=== PATIENT | female | born 1950 | race Asian ===

== ENCOUNTER 2021-08-02 18:32 | Inpatient (IN) | payer MEDICARE, OTHER ==
[~2021-08-02] VITALS: Ht 149.9 cm; Wt 73.8 kg
[2021-08-02] MEDS ORDERED: LABETALOL 20 MG/4 ML DISP.SYRIN. IVP ONE (19:30)
[2021-08-02] MEDS ORDERED: KETOROLAC 15 MG/ML VIAL. IVP ONE (19:30)
[2021-08-02] MEDS ORDERED: IV NORMAL SALINE 1,000ML 1,000 ML IV ONE (19:30)
[2021-08-02 19:31] LABS: BASO % 0 % (0-3); EOS # 0.2 x10^3/uL (0.0-0.7); EOS % 3 % (0-3); HEMATOCRIT 40.6 % (36.0-47.0); HEMOGLOBIN 13.5 g/dL (12.0-15.5); LYMPH # 2.7 x10^3/uL (1.0-4.8); LYMPH % 35 % (24-48); MEAN CORPUSCULAR HEMOGLOBIN 29 pg (25-35); MEAN CORPUSCULAR HGB CONC 33 g/dL (31-37); MEAN CORPUSCULAR VOLUME 88 fL (79-100); MONO # 0.7 x10^3/uL (0.0-1.1); MONO % 9 % (0-9); NEUT # 4.2 x10^3uL (1.8-7.7); NEUT % 53 % (31-73); PLATELET COUNT 255 x10^3/uL (140-400); RED CELL DISTRIBUTION WIDTH 14.4 % (11.5-14.5); WHITE BLOOD COUNT 7.9 x10^3/uL (4.0-11.0)
[2021-08-02 19:38] LABS: CALCIUM 9.4 mg/dL (8.5-10.1); CREATININE 0.9 mg/dL (0.6-1.0); GFR 62.1; POTASSIUM 4.2 mmol/L (3.5-5.1)
[2021-08-02 19:44] LABS: ALBUMIN 3.7 g/dL (3.4-5.0); ALBUMIN/GLOBULIN RATIO 0.9 (1.0-1.7); TOTAL BILIRUBIN 0.3 mg/dL (0.2-1.0)
[2021-08-02 19:52] LABS: BACTERIA,URINE 0 /HPF (0-FEW); BILIRUBIN,URINE NEG (NEG); CLARITY,URINE CLEAR; COLOR,URINE YELLOW; GLUCOSE,URINE NEG (NEG); NITRITE,URINE NEG (NEG); RBC,URINE 0 /HPF (0-2); SQUAMOUS EPITHELIAL CELL,UR FEW /LPF; UROBILINOGEN,URINE 0.2 mg/dL (0.2 mg/dL)
--- NOTE | 2021-08-02 21:08 | RAD ---
Exam: CT head and cervical spine INDICATION: Dizzy, weakness TECHNIQUE: Sequential axial images through the head and cervical spine were obtained without the admi nistration of IV contrast. Exposure: One or more of the following in the visualized dose reduction techniques were utilized for this examination: 1. Automated exposure control 2. Adjustment of the MA and/or KV according to patient size 3. Use of iterative of reconstructive technique Comparisons: None FINDINGS: Head: No focal parenchymal lesion or hemorrhage is identified. There is no midline shift or sulcal effaceme nt. Mild patchy hypodensity in the periventricular white matter. No acute vascular territory infarction i s identified. Trammell-white distinction is preserved. The ventricular system is within normal limits without compression hydrocephalus. The basal cisterns are well maintained. The visualized portions of the paranasal sinuses and mastoid air cells are well-pneumatized. No acute fractures. Cervical spine: Vertebral body heights and alignment are well-maintained. Fracture to the cervical spine is not identified. No significant spondylotic change in cervical spine. Visualized paraspinal soft tissues are unremarkable. IMPRESSION: 1. Mild small vessel ischemic change, technically age indeterminate without recent prior imaging. 2. Negative CT C-spine for acute traumatic injury. Electronically signed by: Eulalio Luu MD (08/02/2021 9:06 PM) [facility]
--- NOTE | 2021-08-02 21:15 | PHYS DOC ---
Past History Past Surgical History: Tubal ligation (CLAU ESCUDERO APRN) Alcohol Use: None (CLAU ESCUDERO APRN) General Adult EDM: Chief Complaint: FATIGUE HPI: HPI: Patient is a 71-year-old female who presents with weakness, dizziness. Patient is also reporting chronic back pain. Patient states that she seen her PCP for this problem in the past and has a follow-up appointment next month with her PCP. Patient's blood pressure on arrival was 180s/90s. Patient denies dizziness or weakness at this time. Denies chest pain or shortness of breath. Denies nausea/vomiting/diarrhea. History of hypertension. (CLAU ESCUDERO APRN) Review of Systems: Review of Systems: ROS At least 10 ROS systems have been reviewed and are negative except as documented in the HPI. General: Negative except as outlined in HPI above. Skin: Negative except as outlined in HPI above. HEENT: Negative except as outlined in HPI above. Neck: Negative except as outlined in HPI above. Respiratory: Negative except as outlined in HPI above.. Cardiovascular: Negative except as outlined in HPI above. Abdomen: Negative except as outlined in HPI above. : Negative except as outlined in HPI above. Back/MSK: Negative except as outlined in HPI above. Neuro: Negative except as outlined in HPI above. Psych: Negative except as outlined in HPI above. (CLAU ESCUDERO APRN) Current Medications: Current Meds: Current Medications Medications (Trade) Dose Ordered Sig/Lev Start Time Stop Time Status Last Admin Dose Admin Ketorolac Tromethamine (Toradol 15mg Vial) 15 mg 1X ONCE 08/02/21 19:30 08/02/21 19:31 DC 08/02/21 19:37 15 MG Labetalol HCl (Normodyne) 10 mg 1X ONCE 08/02/21 19:30 08/02/21 19:31 DC 08/02/21 19:37 10 MG Sodium Chloride 1,000 ml @ 1,000 mls/hr 1X ONCE 08/02/21 19:30 08/02/21 20:29 DC 08/02/21 19:37 1,000 MLS/HR (CLAU ESCUDERO APRN) Allergies: Allergies: Allergies Coded Allergies Type Severity Reaction Last Updated Verified No Known Drug Allergies 08/02/21 No (CLAU ESCUDERO APRN) Physical Exam: PE: Constitutional: Well developed, well nourished, no acute distress, non-toxic appearance. [] HENT: Normocephalic, atraumatic, bilateral external ears normal, oropharynx moist, no oral exudates, nose normal. [] Eyes: PERRLA, EOMI, conjunctiva normal, no discharge. [] Neck: Normal range of motion, no tenderness, supple, no stridor. [] Cardiovascular:Heart rate regular rhythm, no murmur [] Lungs & Thorax: Bilateral breath sounds clear to auscultation [] Abdomen: Bowel sounds normal, soft, no tenderness, no masses, no pulsatile masses. [] Skin: Warm, dry, no erythema, no rash. [] Back: No tenderness, no CVA tenderness. [] Extremities: No tenderness, no cyanosis, no clubbing, ROM intact, no edema. [] Neurologic: Alert and oriented X 3, normal motor function, normal sensory function, no focal deficits noted. [] Psychologic: Affect normal, judgement normal, mood normal. [] (CLAU ESCUDERO APRN) Current Patient Data: Labs: Laboratory Tests Test 08/02/21 18:50 08/02/21 19:15 Urine Collection Type Unknown Urine Color Yellow Urine Clarity Clear Urine pH 5.0 Urine Specific [place] 1.010 Urine Protein Neg (NEG-TRACE) Urine Glucose (UA) Neg mg/dL (NEG) Urine Ketones (Stick) Neg mg/dL (NEG) Urine Blood Trace (NEG) Urine Nitrite Neg (NEG) Urine Bilirubin Neg (NEG) Urine Urobilinogen Dipstick 0.2 mg/dL (0.2 mg/dL) Urine Leukocyte Esterase Trace (NEG) Urine RBC 0 /HPF (0-2) Urine WBC 1-4 /HPF (0-4) Urine Squamous Epithelial Cells Few /LPF Urine Bacteria 0 /HPF (0-FEW) White Blood Count 7.9 x10^3/uL (4.0-11.0) Red Blood Count 4.60 x10^6/uL (3.50-5.40) Hemoglobin 13.5 g/dL (12.0-15.5) Hematocrit 40.6 % (36.0-47.0) Mean Corpuscular Volume 88 fL (79-100) Mean Corpuscular Hemoglobin 29 pg (25-35) Mean Corpuscular Hemoglobin Concent 33 g/dL (31-37) Red Cell Distribution Width 14.4 % (11.5-14.5) Platelet Count 255 x10^3/uL (140-400) Neutrophils (%) (Auto) 53 % (31-73) Lymphocytes (%) (Auto) 35 % (24-48) Monocytes (%) (Auto) 9 % (0-9) Eosinophils (%) (Auto) 3 % (0-3) Basophils (%) (Auto) 0 % (0-3) Neutrophils # (Auto) 4.2 x10^3uL (1.8-7.7) Lymphocytes # (Auto) 2.7 x10^3/uL (1.0-4.8) Monocytes # (Auto) 0.7 x10^3/uL (0.0-1.1) Eosinophils # (Auto) 0.2 x10^3/uL (0.0-0.7) Basophils # (Auto) 0.0 x10^3/uL (0.0-0.2) Sodium Level 138 mmol/L (136-145) Potassium Level 4.2 mmol/L (3.5-5.1) Chloride Level 105 mmol/L (98-107) Carbon Dioxide Level 23 mmol/L (21-32) Anion Gap 10 (6-14) Blood Urea Nitrogen 22 mg/dL (7-20) H Creatinine 0.9 mg/dL (0.6-1.0) Estimated GFR (Cockcroft-Gault) 62.1 BUN/Creatinine Ratio 24 (6-20) H Glucose Level 99 mg/dL (70-99) Calcium Level 9.4 mg/dL (8.5-10.1) Total Bilirubin 0.3 mg/dL (0.2-1.0) Aspartate Amino Transferase (AST) 22 U/L (15-37) Alanine Aminotransferase (ALT) 28 U/L (14-59) Alkaline Phosphatase 55 U/L (46-116) Total Protein 8.0 g/dL (6.4-8.2) Albumin 3.7 g/dL (3.4-5.0) Albumin/Globulin Ratio 0.9 (1.0-1.7) L Vital Signs: Vital Signs Date Time Temp Pulse Resp B/P (MAP) Pulse Ox O2 Delivery O2 Flow Rate FiO2 9/26/21 19:37 68 196/111 08/02/21 18:32 98.3 18 100 Room Air (CLAU ESCUDERO APRN) EKG: EKG: [] (CLAU ESCUDERO APRN) Radiology/Procedures: Radiology/Procedures: []Exam: CT head and cervical spine INDICATION: Dizzy, weakness TECHNIQUE: Sequential axial images through the head and cervical spine were obtained without the administration of IV contrast. Exposure: One or more of the following in the visualized dose reduction techniques were utilized for this examination: 1. Automated exposure control 2. Adjustment of the MA and/or KV according to patient size 3. Use of iterative of reconstructive technique Comparisons: None FINDINGS: Head: No focal parenchymal lesion or hemorrhage is identified. There is no midline shift or sulcal effacement. Mild patchy hypodensity in the periventricular white matter. No acute vascular territory infarction is identified. Trammell-white distinction is preserved. The ventricular system is within normal limits without compression hydrocephalus. The basal cisterns are well maintained. The visualized portions of the paranasal sinuses and mastoid air cells are well- pneumatized. No acute fractures. Cervical spine: Vertebral body heights and alignment are well-maintained. Fracture to the cervical spine is not identified. No significant spondylotic change in cervical spine. Visualized paraspinal soft tissues are unremarkable. IMPRESSION: 1. Mild small vessel ischemic change, technically age indeterminate without recent prior imaging. 2. Negative CT C-spine for acute traumatic injury. Electronically signed by: Eulalio Luu MD (08/02/2021 9:06 PM) [facility] (CLAU ESCUDERO APRN) Heart Score: C/O Chest Pain: No Risk Factors: Risk Factors: DM, Current or recent (<one month) smoker, HTN, HLP, family history of CAD, obesity. Risk Scores: Score 0 - 3: 2.5% MACE over next 6 weeks - Discharge Home Score 4 - 6: 20.3% MACE over next 6 weeks - Admit for Clinical Observation Score 7 - 10: 72.7% MACE over next 6 weeks - Early Invasive Strategies (CLAU ESCUDERO APRN) Course & Med Decision Making: Course & Med Decision Making Pertinent Labs and Imaging studies reviewed. (See chart for details) [] 71-year-old who presents with weakness, dizziness, chronic back pain. Denies shortness of breath or chest pain. Denies cardiac history. Orthostatics are negative. Patient states that her blood pressure over the last few months has been elevated in the 200s. Patient currently takes blood pressure medicine. CT head was unremarkable. Patient's troponin elevated at 0.246. Abnormal EKG. Spoke with Dr. Mcgill from cardiology. Recommended repeat troponin at 6 AM and at 10 AM, along with starting heparin. Dr. Mcgill will see patient tomorrow. Spoke with Dr. Chan at [phone]. Dr. Chan is willing to accept patient for rule out MT. (CLAU ESCUDERO APRN) Dragon Disclaimer: Dragon Disclaimer: This electronic medical record was generated, in whole or in part, using a voice recognition dictation system. (CLAU ESCUDERO APRN) Departure Departure: Referrals: CHAY SCOTT MD (PCP) Attending Signature Attending Signature I have participated in the care of this patient and I have reviewed and agree with all pertinent clinical information above including history, exam, and recommendations. (ABRAM MAGAÑA MD) Attending Signature Attending Signature I have participated in the care of this patient and I have reviewed and agree with all pertinent clinical information above including history, exam, and recommendations. (ABRAM MAGAÑA MD) CLAU ESCUDERO APRN Aug 02, 2021 21:15 ABRAM MAGAÑA MD Aug 03, 2021 08:13
--- NOTE | 2021-08-02 21:30 | EKG ---
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
[2021-08-02] MEDS ORDERED: ANTI-COAG MONITOR BY PHARMACY. MC PRN (22:00)
[2021-08-02] MEDS ORDERED: ASPIRIN CHEWABLE 81 MG TABLET. PO ONE (22:00)
[2021-08-02] MEDS ORDERED: HEPARIN for IV BOLUS 10,000 UNIT/10 ML VIAL. IV ONE (22:00)
--- NOTE | 2021-08-02 22:27 | RAD ---
Exam: Chest one view INDICATION: Dizzy TECHNIQUE: Frontal view of the chest Comparisons: None FINDINGS: The cardiomediastinal silhouette and pulmonary vessels are within normal limits. Hazy bibasilar airspace disease. No pleural effusion IMPRESSION: Findings which may relate to mild pulmonary edema. Electronically signed by: Eulalio Luu MD (08/02/2021 10:24 PM) [facility]
[2021-08-02 23:20] VITALS: BP 181/91
--- NOTE | 2021-08-02 23:20 | NUR ---
Pt admitted to ICU bed 2 from ER via [facility], accompanied by EMS and nursing staff. Pt stood and self transferred [place] bed with x1 assist, unsteady gait noted. Pt here for c/o Dizziness & Weakness. Admission assessment completed. Health history and home medication reviewed with pt. Pt has here 3 rx bottles here, logged and placed in Inventory bag for Pharmacy to lock up. Pt lives at home with daughter. Heparin gtt started for VTE per orders. Pt UTD of Covid vaccine, wants her Flu shot, order placed in computer. Consult placed to PT/OT and Cardiology. Discussed POC, pt verbalize understanding. Call light in reach. Pt was given written information regarding hospital policies, unit procedures and contact persons. Valuables were checked and logged, left in room with pt. Pt ate box lunch independently and took medications whole without difficulty. Call light with reach.
[2021-08-02] MEDS: HEPARIN 25,000UTS/250ML PREMIX 250 ML IV PRN ×2 (23:31→23:53)
[2021-08-03] VITALS (14 sets, daily range): BP systolic 136–187; BP diastolic 56–88
[2021-08-03] MEDS ORDERED: METO50TA29 PO (00:38)
[2021-08-03] MEDS ORDERED: LEVO50TA PO (00:38)
[2021-08-03] MEDS ORDERED: OLME1TAB21 PO (00:38)
[2021-08-03] MEDS: LEVOTHYROXINE 50 MCG TABLET PO SCH (05:44)
--- NOTE | 2021-08-03 08:40 | PDOC2 ---
CARDIAC CONSULT DATE OF CONSULT DOS: DATE: 08/03/21 TIME: 08:34 REASON FOR CONSULT Reason for Consult Elevated troponin REFERRING PHYSICIAN Referring Physician Dr. Chan SOURCE Source: Chart review, Patient HPI History of Present Illness This is a 71 yo female who presented secondary to weakness, dizziness. Blood pressure significantly elevated. Troponin noted to be mildly elevated, which prompted this consult. Patient reports dizziness upon awakening the morning of arrival. Thought she need to get some exercise so her and daughter went for a walk. Came back and continued to feel slightly dizzy and was tired. Laid down to rest. Woke up and continued to not feel well. Intermittent dizziness continued throughout the day and she began to have pain in her upper back so she came to the ED for further evaluation and treatment. Patient did not have her routine medications on day of arrival. Mildly bradycardic overnight with HR lowest 39. No pauses. She denies any chest pain, shortness of breath, palpitations, or nausea/vomiting. Ricki any dizziness this morning although has not been up and moving this morning. PAST MEDICAL HISTORY Cardiovascular: HTN Endocrine: Hypothyroidism PAST SURGICAL HISTORY Past Surgical History: Tubal Ligation FAMILY HISTORY Family History: Hypertension SOCIAL HISTORY Smoke: No ALCOHOL: none Drugs: None Lives: with Family CURRENT MEDICATIONS Current Medications Current Medications Sodium Chloride 1,000 ml @ 1,000 mls/hr 1X ONCE IV Last administered on 08/02/21at 19:37; Start 08/02/21 at 19:30; Stop 08/02/21 at 20:29; Status DC Ketorolac Tromethamine (Toradol 15mg Vial) 15 mg 1X ONCE IVP Last administered on 08/02/21at 19:37; Start 08/02/21 at 19:30; Stop 08/02/21 at 19:31; Status DC Labetalol HCl (Normodyne) 10 mg 1X ONCE IVP Last administered on 08/02/21at 19:37; Start 08/02/21 at 19:30; Stop 08/02/21 at 19:31; Status DC Heparin Sodium (Porcine) (Heparin Sodium) 4,000 unit 1X ONCE IV Last administered on 08/02/21at 22:35; Start 08/02/21 at 22:00; Stop 08/02/21 at 22:01; Status DC Heparin Sodium/ Dextrose 250 ml @ 0 mls/hr CONT PRN IV PER PROTOCOL Last administered on 08/02/21at 23:53; Start 08/02/21 at 21:45 Aspirin (Aspirin Chewable) 162 mg 1X ONCE PO Last administered on 08/02/21at 23:30; Start 08/02/21 at 22:00; Stop 08/02/21 at 22:01; Status DC Aspirin (Aspirin Chewable) 81 mg DAILYWBKFT PO ; Start 08/03/21 at 08:00 Info (Anti-Coagulation Monitoring By Pharmacy) 1 each PRN DAILY PRN MC PER PROTOCOL; Start 08/02/21 at 22:00 Influenza Virus Vaccine Quadrival (Flulaval Quad [id number] Syringe) 0.5 ml ONCE ONCE VAX IM ; Start 08/03/21 at 09:00; Stop 08/03/21 at 09:01 Levothyroxine Sodium (Synthroid) 50 mcg DAILY06 PO Last administered on 08/03/21at 05:44; Start 08/03/21 at 06:00 Metoprolol Succinate (Toprol Xl) 50 mg DAILY PO ; Start 08/03/21 at 09:00 Hydrochlorothiazide (Microzide) 12.5 mg DAILY PO ; Start 08/03/21 at 09:00 Losartan Potassium (Cozaar) 100 mg DAILY PO ; Start 08/03/21 at 09:00 Active Scripts Active Reported Metoprolol Succinate ( Xl ) (Metoprolol Succinate) 50 Mg Tab.er.24h 50 Mg PO DAILY LAST DOSE GIVEN: DATE: TIME: NEXT DOSE DUE: DATE: TIME: Synthroid (Levothyroxine Sodium) 50 Mcg Tablet 50 Mcg PO DAILYAC LAST DOSE GIVEN: DATE: TIME: NEXT DOSE DUE: DATE: TIME: Benicar Hct 20-12.5 Mg Tablet (Olmesartan/Hydrochlorothiazide) 1 Each Tablet 1 Tab PO DAILY LAST DOSE GIVEN: DATE: TIME: NEXT DOSE DUE: DATE: TIME: ALLERGIES Allergies: Coded Allergies: No Known Drug Allergies (Unverified , 08/03/21) ROS Review of Systems 14 point ROS conducted with pertinent positives noted above in hPI PHYSICAL EXAM General: Alert, Oriented X3, Cooperative, No acute distress HEENT: Atraumatic Lungs: Clear to auscultation, Normal air movement Heart: Regular rate (SR/SB) Abdomen: Soft, No tenderness Extremities: No edema, Normal pulses Skin: No breakdown Neuro: Normal speech, Sensation intact Psych/Mental Status: Mental status NL, Mood NL MUSCULOSKELETAL: Osteoarthritic changes both hands VITALS Vital Signs Vital Signs Date Time Temp Pulse Resp B/P (MAP) Pulse Ox O2 Delivery O2 Flow Rate FiO2 08/03/21 06:20 47 14 168/64 (98) Room Air 08/03/21 05:55 98.0 97 LABS LABS Laboratory Tests Test 08/02/21 18:50 08/02/21 19:15 08/02/21 21:35 08/02/21 22:05 Urine Collection Type Unknown Urine Color Yellow Urine Clarity Clear Urine pH 5.0 Urine Specific [place] 1.010 Urine Protein Neg (NEG-TRACE) Urine Glucose (UA) Neg mg/dL (NEG) Urine Ketones (Stick) Neg mg/dL (NEG) Urine Blood Trace (NEG) Urine Nitrite Neg (NEG) Urine Bilirubin Neg (NEG) Urine Urobilinogen Dipstick 0.2 mg/dL (0.2 mg/dL) Urine Leukocyte Esterase Trace (NEG) Urine RBC 0 /HPF (0-2) Urine WBC 1-4 /HPF (0-4) Urine Squamous Epithelial Cells Few /LPF Urine Bacteria 0 /HPF (0-FEW) White Blood Count 7.9 x10^3/uL (4.0-11.0) Red Blood Count 4.60 x10^6/uL (3.50-5.40) Hemoglobin 13.5 g/dL (12.0-15.5) Hematocrit 40.6 % (36.0-47.0) Mean Corpuscular Volume 88 fL (79-100) Mean Corpuscular Hemoglobin 29 pg (25-35) Mean Corpuscular Hemoglobin Concent 33 g/dL (31-37) Red Cell Distribution Width 14.4 % (11.5-14.5) Platelet Count 255 x10^3/uL (140-400) Neutrophils (%) (Auto) 53 % (31-73) Lymphocytes (%) (Auto) 35 % (24-48) Monocytes (%) (Auto) 9 % (0-9) Eosinophils (%) (Auto) 3 % (0-3) Basophils (%) (Auto) 0 % (0-3) Neutrophils # (Auto) 4.2 x10^3uL (1.8-7.7) Lymphocytes # (Auto) 2.7 x10^3/uL (1.0-4.8) Monocytes # (Auto) 0.7 x10^3/uL (0.0-1.1) Eosinophils # (Auto) 0.2 x10^3/uL (0.0-0.7) Basophils # (Auto) 0.0 x10^3/uL (0.0-0.2) Sodium Level 138 mmol/L (136-145) Potassium Level 4.2 mmol/L (3.5-5.1) Chloride Level 105 mmol/L (98-107) Carbon Dioxide Level 23 mmol/L (21-32) Anion Gap 10 (6-14) Blood Urea Nitrogen 22 mg/dL (7-20) Creatinine 0.9 mg/dL (0.6-1.0) Estimated GFR (Cockcroft-Gault) 62.1 BUN/Creatinine Ratio 24 (6-20) Glucose Level 99 mg/dL (70-99) Calcium Level 9.4 mg/dL (8.5-10.1) Total Bilirubin 0.3 mg/dL (0.2-1.0) Aspartate Amino Transf (AST/SGOT) 22 U/L (15-37) Alanine Aminotransferase (ALT/SGPT) 28 U/L (14-59) Alkaline Phosphatase 55 U/L (46-116) Troponin I Quantitative 0.246 ng/mL (0-0.055) Total Protein 8.0 g/dL (6.4-8.2) Albumin 3.7 g/dL (3.4-5.0) Albumin/Globulin Ratio 0.9 (1.0-1.7) Prothrombin Time 10.5 SEC (9.4-11.4) Prothromb Time International Ratio 1.0 (0.9-1.1) Activated Partial Thromboplast Time 24 SEC (23-33) Coronavirus (COVID-19)(PCR) Not detected (NEGATIVE) SARS-CoV-2 Antigen (Rapid) Negative (NEGATIVE) Test 08/03/21 06:00 Activated Partial Thromboplast Time 71 SEC (23-33) Troponin I Quantitative 0.263 ng/mL (0-0.055) ASSESSMENT/PLAN Assessment/Plan 1. Weakness, dizziness; improved 2. Hypertensive urgency; remains labile 3. Mild troponin elevation; highest 0.26. on heparin gtt. CP free 4. Sinus bradycardia; lowest 38 overnight. Presently 58. No high-grade block or pauses noted. Is on metoprolol at home 6. Hypothyroidism Recommendations Trend troponin Lipids, TSH ASA therapy BP control; resume losartan, HCTZ Discontinue metoprolol; avoid AV danilo blocking agents Hydralazine IV PRN Echo to assess LV systolic function Will need further ischemic eval, possibly on an outpatient basis Further pending above RADHA KOCH APRN Aug 03, 2021 08:40
[2021-08-03] MEDS ORDERED: FLU VACC QUAD 21-22 (6MOS+) PF 0.5 ML SYRINGE. VAX IM ONE (09:00)
[2021-08-03] MEDS ORDERED: METOPROLOL SUCC 24HR ER 50 MG TAB.ER.24H. PO SCH (09:00)
[2021-08-03] MEDS ORDERED: hydrALAZINE 20 MG/ML VIAL. IV PRN (09:45)
[2021-08-03] MEDS: hydroCHLOROthiazide 12.5 MG CAPSULE PO SCH (10:29)
[2021-08-03] MEDS: LOSARTAN 50 MG TABLET. PO SCH (10:30)
[2021-08-03] MEDS: ASPIRIN CHEWABLE 81 MG TABLET. PO SCH (10:30)
--- NOTE | 2021-08-03 11:06 | NUR ---
Patient requested to delay flu vaccine administration till closer to discharge.
--- NOTE | 2021-08-03 15:14 | HP ---
ADMIT DATE: 08/02/2021 HISTORY OF PRESENT ILLNESS: The patient is a 71-year-old [place] female patient, who presented to the Emergency Room of [facility] with a complaint of weakness, dizziness. She also reported back pain between shoulder blades. She apparently was seen by her primary care physician for this problem in the past and has a followup appointment. The patient's blood pressure also on arrival was 180/90. The patient, however, denied any chest pain, denied any shortness of breath. Denied any nausea, vomiting or diaphoresis or radiation of pain to her left arm, left shoulder, left side of the neck. She was extensively investigated in the Emergency Room and has had lab work and imaging studies. Her EKG showed that she was in sinus rhythm with probably a left bundle branch block pattern. Her blood count was unremarkable. Her prothrombin time, INR and APTT were normal. Chemistry was mostly unremarkable except her first set of cardiac enzyme was elevated at 0.246. 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 PAST MEDICAL HISTORY: Significant for hypertension, hyperlipidemia and hypothyroidism. PAST SURGICAL HISTORY: Significant for tubal ligation. ALLERGIES: She has no known drug allergies. MEDICATIONS: She is currently on the following medication. She is on metoprolol succinate 50 mg once a day, olmesartan/hydrochlorothiazide 20/12.5 one tablet once a day and levothyroxine sodium 50 mcg once a day. FAMILY HISTORY: She has 2 older brothers and both are because of cerebrovascular accident and hypertension. Three sisters, 1 alive and 2 of them before their 50s, one because of breast cancer and one because of lung disease. Her father at age of 76 because of congestive heart failure and hypertension. Her mother of old age at the age of 96. SOCIAL HISTORY: She is single, has 2 daughters and 1 son. She never smoked, drinks wine occasionally, does not use any drugs. PHYSICAL EXAMINATION: GENERAL: On arrival to the Emergency Room, the patient looked well and was clearly in no apparent respiratory distress. There was no pallor, jaundice, cyanosis. No lymphadenopathy, no thyromegaly. No jugular venous distention. No limb edema. VITAL SIGNS: Her heart rate was 52, blood pressure was 186/80, her temperature was 98, respiratory rate was 16 and oxygen saturation was 97% on room air. HEAD, EYES, EARS, NOSE AND THROAT: Normocephalic, atraumatic. NECK: Supple. HEART: Normal first and second heart sounds. No gallop, rub or murmur. CHEST: Clear to auscultation, no crepitation or rhonchi. ABDOMEN: Slightly distended, soft, nontender. NEUROLOGIC: She was alert, oriented x3 with normal motor and sensory function. LABORATORY DATA: While in the Emergency Room, she has had lab work done. Her CBC showed a white cell count 7900, hemoglobin 13.5, hematocrit 40.6, MCV 88 and platelet count of 255,000 with normal manual differential. Her chemistry showed a serum sodium 138, potassium 4.2, chloride 105, bicarbonate 23, anion gap of 10, BUN 22, creatinine 0.9. Estimated GFR was 62 mL per minute. Her glucose was 99. calcium was 9.4. Total bilirubin, AST, ALT, alkaline phosphatase were normal. Her first set of cardiac enzymes showed troponin to be 0.246. her calcium was 8, magnesium was 3.7 and ratio was 0.9. Her urinalysis is essentially unremarkable and her coronavirus by PCR was not detectable. Her chest x-ray showed the cardiomediastinal silhouette and pulmonary vessels are within normal limits, hazy bibasilar airspace disease, no pleural effusion. She also had a CT scan of the head and cervical spine, which showed the patient has mild small vessel ischemic changes technically and age indeterminate without recent prior imaging. Negative CT of the cervical spine for acute traumatic injury. ASSESSMENT AND PLAN: The patient was admitted with dizziness, uncontrolled hypertension, back pain. She will have two more sets of cardiac enzymes. We will check also her fasting lipid profile and consult the Cardiology team. CEASAR MCCOY: [place] TID: [id number]
[2021-08-03 15:56] LABS: THYROID STIM HORMONE (TSH) 5.446 uIU/mL (0.358-3.740)
[2021-08-03] MEDS ORDERED: hydrALAZINE 25 MG TABLET PO ONE (16:00)
--- NOTE | 2021-08-03 17:40 | NUR ---
Patient has been comfortable all shift with no complaints of chest pain, dizziness, or weakness. Patients Troponin's have continued to increase throughout the day. Cardiology was notified of each Troponin result. Ann Sumner ordered the Heparin gtt to be continued overnight with a repeat Troponin scheduled for the morning. Patients BP has continued to be elevated throughout shift. IV Hydralazine was administered with some decrease in the BP therefore Dr. Chan started PO Hydralazine TID. Patients most recent BP measurement post PO Hydralazine administration was 175/77. WCTM
[2021-08-03] MEDS: hydrALAZINE 25 MG TABLET PO SCH (20:49)
[2021-08-04 03:00] VITALS: BP 158/67
[2021-08-04 05:00] VITALS: BP 144/60
[2021-08-04] MEDS: LEVOTHYROXINE 50 MCG TABLET PO SCH (05:36)
[2021-08-04] MEDS: HEPARIN 25,000UTS/250ML PREMIX 250 ML IV PRN (05:37)
[2021-08-04 05:40] VITALS: BP 159/69
[2021-08-04] MEDS: hydroCHLOROthiazide 12.5 MG CAPSULE PO SCH (08:19)
[2021-08-04] MEDS: ASPIRIN CHEWABLE 81 MG TABLET. PO SCH (08:20)
[2021-08-04] MEDS: hydrALAZINE 25 MG TABLET PO SCH (08:20)
[2021-08-04] MEDS: LOSARTAN 50 MG TABLET. PO SCH (08:20)
[2021-08-04 08:22] VITALS: BP 141/63
--- NOTE | 2021-08-04 08:31 | PDOC ---
CARDIO Progress Notes Date & Time Date of Service DATE: 08/04/21 TIME: 08:27 Time of Evaluation 08:27 Subjective Notes No dizziness, chest pain, SOA Continues to have intermittent pain across the upper back. Vitals Vitals Vital Signs Date Time Temp Pulse Resp B/P (MAP) Pulse Ox O2 Delivery O2 Flow Rate FiO2 08/04/21 05:40 98.1 62 18 159/69 (99) 96 Room Air Weight Weight [ ] Input and Output I.O. Intake and Output 08/04/21 07:00 Intake Total 1140 ml Output Total 850 ml Balance 290 ml Intake Oral 890 ml IV Total 250 ml Output Urine Total 850 ml # Voids 1 Laboratory Labs Laboratory Tests Test 08/02/21 18:50 08/02/21 19:15 08/02/21 21:35 08/02/21 22:05 Urine Collection Type Unknown Urine Color Yellow Urine Clarity Clear Urine pH 5.0 Urine Specific [place] 1.010 Urine Protein Neg (NEG-TRACE) Urine Glucose (UA) Neg mg/dL (NEG) Urine Ketones (Stick) Neg mg/dL (NEG) Urine Blood Trace (NEG) Urine Nitrite Neg (NEG) Urine Bilirubin Neg (NEG) Urine Urobilinogen Dipstick 0.2 mg/dL (0.2 mg/dL) Urine Leukocyte Esterase Trace (NEG) Urine RBC 0 /HPF (0-2) Urine WBC 1-4 /HPF (0-4) Urine Squamous Epithelial Cells Few /LPF Urine Bacteria 0 /HPF (0-FEW) White Blood Count 7.9 x10^3/uL (4.0-11.0) Red Blood Count 4.60 x10^6/uL (3.50-5.40) Hemoglobin 13.5 g/dL (12.0-15.5) Hematocrit 40.6 % (36.0-47.0) Mean Corpuscular Volume 88 fL (79-100) Mean Corpuscular Hemoglobin 29 pg (25-35) Mean Corpuscular Hemoglobin Concent 33 g/dL (31-37) Red Cell Distribution Width 14.4 % (11.5-14.5) Platelet Count 255 x10^3/uL (140-400) Neutrophils (%) (Auto) 53 % (31-73) Lymphocytes (%) (Auto) 35 % (24-48) Monocytes (%) (Auto) 9 % (0-9) Eosinophils (%) (Auto) 3 % (0-3) Basophils (%) (Auto) 0 % (0-3) Neutrophils # (Auto) 4.2 x10^3uL (1.8-7.7) Lymphocytes # (Auto) 2.7 x10^3/uL (1.0-4.8) Monocytes # (Auto) 0.7 x10^3/uL (0.0-1.1) Eosinophils # (Auto) 0.2 x10^3/uL (0.0-0.7) Basophils # (Auto) 0.0 x10^3/uL (0.0-0.2) Sodium Level 138 mmol/L (136-145) Potassium Level 4.2 mmol/L (3.5-5.1) Chloride Level 105 mmol/L (98-107) Carbon Dioxide Level 23 mmol/L (21-32) Anion Gap 10 (6-14) Blood Urea Nitrogen 22 mg/dL (7-20) Creatinine 0.9 mg/dL (0.6-1.0) Estimated GFR (Cockcroft-Gault) 62.1 BUN/Creatinine Ratio 24 (6-20) Glucose Level 99 mg/dL (70-99) Calcium Level 9.4 mg/dL (8.5-10.1) Total Bilirubin 0.3 mg/dL (0.2-1.0) Aspartate Amino Transf (AST/SGOT) 22 U/L (15-37) Alanine Aminotransferase (ALT/SGPT) 28 U/L (14-59) Alkaline Phosphatase 55 U/L (46-116) Troponin I Quantitative 0.246 ng/mL (0-0.055) Total Protein 8.0 g/dL (6.4-8.2) Albumin 3.7 g/dL (3.4-5.0) Albumin/Globulin Ratio 0.9 (1.0-1.7) Prothrombin Time 10.5 SEC (9.4-11.4) Prothromb Time International Ratio 1.0 (0.9-1.1) Activated Partial Thromboplast Time 24 SEC (23-33) Coronavirus (COVID-19)(PCR) Not detected (NEGATIVE) SARS-CoV-2 Antigen (Rapid) Negative (NEGATIVE) Test 08/03/21 06:00 08/03/21 10:25 08/03/21 12:00 08/03/21 15:25 Activated Partial Thromboplast Time 71 SEC (23-33) 52 SEC (23-33) Troponin I Quantitative 0.263 ng/mL (0-0.055) 0.270 ng/mL (0-0.055) 0.285 ng/mL (0-0.055) Triglycerides Level 69 mg/dL (0-150) Cholesterol Level 246 mg/dL (0-200) LDL Cholesterol, Calculated 165 mg/dL (0-100) VLDL Cholesterol, Calculated 13 mg/dL (0-40) Non-HDL Cholesterol Calculated 178 mg/dL (0-129) HDL Cholesterol 68 mg/dL (40-60) Cholesterol/HDL Ratio 3.0 Thyroid Stimulating Hormone (TSH) 5.446 uIU/mL (0.358-3.740) Test 08/04/21 05:35 Activated Partial Thromboplast Time 45 SEC (23-33) Troponin I Quantitative 0.220 ng/mL (0-0.055) Microbiology Micro Microbiology 08/02/21 Urine Culture - Final, Complete Physical Exams HEENT: Neck Supple W Full Motion Chest: Symmetric Lungs: Clear to Auscultation Heart: RRR (SB rate 55) Abdomen: Soft N/T Extremities: No Edema Neurology: alert, oriented, follow commands Assessment Assessment 1. Weakness, dizziness; improved 2. Hypertensive urgency; improved, but remains elevated 3. Mild troponin elevation; peak 0.285. on heparin gtt. CP free. EKG with LBBB. no previous for comparison 4. Sinus bradycardia; lowest 38 overnight. Presently 55. No high-grade block or pauses noted. Was on metoprolol at home 5. Hypothyroidism 6. Hyperlipidemia Recommendations ASA therapy Add statin Continue losartan, HCTZ Increase scheduled hydralazine Avoid AV danilo blocking agents Echo to assess LV systolic function Given symptomatology, mildly elevated troponin level, and abnormal EKG, recommend definitive ischemic evaluation with left heart catheterization. R/b/a discussed with patient and daughter, Brenda, and both are agreeable to proceed Keep NPO Will transfer to [facility] for C this afternoon RADHA KOCH APRN Aug 04, 2021 08:31
[2021-08-04] MEDS ORDERED: hydrALAZINE 25 MG TABLET PO ONE (09:00)
[2021-08-04] MEDS ORDERED: FLU VACC QUAD 21-22 (6MOS+) PF 0.5 ML SYRINGE. VAX IM ONE (09:00)
[2021-08-04 10:37] VITALS: BP 141/63
--- NOTE | 2021-08-04 11:52 | NUR ---
Spoke with pt and daughter via speakerphone, they are agreeable to going to [facility] for cardiac cath. Chart copy made, consent signed. Medications retrieved from Rx. Report called to [facility] outpatient observation Manjit NATARAJAN. Pt to go with heparin infusing and PIV intact.
--- NOTE | 2021-08-04 12:07 | NUR ---
EMS here to get pt, all belongings, including pt medications sent with pt. PIV with heparin infusing intact. Pt daughter called as well as [facility] RN to notify of transport Addendum: 08/04/21 at 1210 by LIBERTY TENORIO RN pt did not want flu shot this am
--- NOTE | 2021-08-04 18:29 | DS ---
DATE OF DISCHARGE: 08/04/2021 DISCHARGE/TRANSFER SUMMARY HOSPITAL COURSE: The patient is a 71-year-old [place] female patient who was admitted with generalized weakness and dizziness. Her blood pressure was also extremely high and was admitted and had 3 sets of cardiac enzyme that has steadily increased. She was seen by the Cardiology team and was started on heparin drip and apparently a decision was made to transfer her to [facility] for cardiac catheterization. When I saw her, on questioning her this morning, she denied any further episodes of dizziness or weakness. Denied any chest pain or shortness of breath. PHYSICAL EXAMINATION: GENERAL: When I examined her, she looked well and was clearly in no apparent respiratory distress. No pallor, jaundice, cyanosis or thyromegaly. No jugular venous distention. No limb edema. VITAL SIGNS: Her heart rate was 73, blood pressure is 141/63, temperature was 98.1, respiratory rate was 21 and oxygen saturation was 95% on room air. HEAD, EYES, EARS, NOSE, AND THROAT: Normocephalic, atraumatic. NECK: Supple. HEART: Normal first and second heart sounds, no gallop or murmur. CHEST: Clear to auscultation. No crepitation or rhonchi. ABDOMEN: Distended, soft, nontender. NEUROLOGIC: She was grossly intact. LABORATORY DATA: Showed a white cell count of 7900, hemoglobin 13.5, hematocrit 40, MCV 88 and platelet count 255,000. Her chemistry showed a serum sodium of 138, potassium 4.2, chloride 105, bicarbonate 23, anion gap of 10, BUN 22, creatinine 0.9. Estimated GFR was 62 mL per minute. Her glucose was 99, calcium was 9.4. Total bilirubin, AST, ALT, alkaline phosphatase were normal. Her total protein 8, albumin was 3.7. Her troponin was 0.246, 2.63, 2.70, 2.85. DISCHARGE MEDICATIONS: She was discharged to continue on atorvastatin 20 mg at bedtime, hydralazine 50 mg 3 times a day, hydralazine 10 mg IV every 4 hours, losartan potassium 100 mg once a day, hydrochlorothiazide 12.5 mg daily, aspirin 81 mg once a day, levothyroxine sodium 50 mcg once a day, and heparin as per protocol. FINAL DISCHARGE DIAGNOSES: 1. Weakness, dizziness has improved. 2. Hypertensive urgency. Remains labile. 3. The patient has mild elevation of troponin level peaked at 0.285, on heparin drip. She is chest pain free. EKG showed that she has left bundle-branch block. 4. Sinus bradycardia. 5. Hypothyroidism. 6. Hyperlipidemia. RC/CHAYO/ANGEL DR: [place] TID: [id number]
[2021-08-04] MEDS ORDERED: ATORVASTATIN CALCIUM 20 MG TABLET PO SCH (21:00)
== END 2021-08-04 12:09 | disposition short-term general hospital (02) | DRG 305 ==
LOC: ER 18:32 → ICU 22:16
PROVIDERS: ADMIT Internal Medicine; ATTEND Internal Medicine
DX: I16.0 Hypertensive urgency (principal); I10 Essential (primary) hypertension; E03.9 Hypothyroidism, unspecified; E78.5 Hyperlipidemia, unspecified; G89.29 Other chronic pain; I44.7 Left bundle-branch block, unspecified; Z80.3 Family history of malignant neoplasm of breast; Z82.3 Family history of stroke; R00.1 Bradycardia, unspecified; Z82.49 Family history of ischemic heart disease and other diseases of the circulatory system; Z98.51 Tubal ligation status; Z20.822 Contact with and (suspected) exposure to COVID-19; R53.1 Weakness; R77.8 Other specified abnormalities of plasma proteins
CPT/HCPCS: 36415; 70450; 71045; 72125; 80053; 80061; 81001; 84443; 84484; 85025; 85610; 85730; 87086; 87426; 93005; 96361; 96374; 96375; J0360; J1644; J1885; J3490; U0003; 99285-25; J7030